=== PATIENT | female | born 1975 | race African-American/Black ===

== ENCOUNTER 2022-07-23 20:48 | Emergency (ER) | payer BC, MEDICAID ==
[~2022-07-23] VITALS: Ht 157.5 cm; Wt 97.5 kg
[~2022-07-23 20:48] MED LIST: AMLO2.5T45 PO; CEPH-569 MT; FERR325T23 PO; LISI10TA26 PO; PNV1TABL76 MT
[2022-07-23 20:57] VITALS: BP 188/91
== END 2022-07-24 01:53 | disposition left against medical advice (07) ==
LOC: ER 20:48
DX: Z53.21 Procedure and treatment not carried out due to patient leaving prior to being seen by health care provider (principal); J45.909 Unspecified asthma, uncomplicated; I11.0 Hypertensive heart disease with heart failure; I50.9 Heart failure, unspecified; K21.9 Gastro-esophageal reflux disease without esophagitis; Z87.440 Personal history of urinary (tract) infections; Z90.49 Acquired absence of other specified parts of digestive tract
CPT/HCPCS: 93005

== ENCOUNTER 2023-08-16 00:07 | Emergency (ER) | payer SELFPAY ==
[~2023-08-16] VITALS: Ht 157.5 cm; Wt 99.0 kg
[2023-08-16 00:24] VITALS: O2SAT 98
[2023-08-16] MEDS ORDERED: HYDRALAZINE 20MG/ML VIAL IV ONE (02:45)
[2023-08-16 03:24] LABS: BASOPHILS % 0.8 % (0.0-2.0); EOSINOPHILS % 7.8 % (0.0-5.0); HEMATOCRIT. 36.5 % (36.0-48.0); HEMOGLOBIN. 11.9 g/dL (12.0-16.0); LYMPHOCYTES % 25.1 % (20.0-50.0); MEAN CORPUSCULAR HEMOGLOBIN 27.4 pg (28.0-32.0); MEAN CORPUSCULAR HGB CONC 32.7 g/dL (31.0-37.0); MEAN CORPUSCULAR VOLUME 83.7 fL (81.0-99.0); MEAN PLATELET VOLUME 9.5 fl (7.4-10.4); MONOCYTES % 7.6 % (2.0-8.0); NEUTROPHILS % 58.7 % (40.0-76.0); PLATELET 256 x1000/uL (130-400); RED BLOOD CELL COUNT 4.36 mill/uL (4.2-5.4); RED CELL DISTRIBUTION WIDTH 17.4 % (11.6-14.6); WHITE BLOOD COUNT 7.9 x1000/uL (4.5-11.0)
[2023-08-16 03:39] LABS: ALANINE AMINOTRANSFERASE 11 IU/L (10-49); ALBUMIN 3.9 g/dL (3.2-4.8); ASPARTATE AMINOTRANSFERASE 18 IU/L (<34); BILIRUBIN TOTAL 0.4 mg/dL (0.1-1.0); CALCIUM 9.3 mg/dL (8.7-10.4); CARBON DIOXIDE 30 mEq/L (21-32); CHLORIDE 104 mEq/L (98-107); CREATININE 0.6 mg/dL (0.6-1.0); GLUCOSE 94 mg/dL (70-105); POTASSIUM 3.9 mEq/L (3.5-5.1); PROTEIN TOTAL 6.5 g/dL (6.0-8.3); SODIUM 140 mEq/L (136-145)
[2023-08-16 03:42] LABS: TROPONIN I HIGH SENSITIVITY < 4 ng/L (3.0-34); UREA NITROGEN BLOOD < 5 mg/dL (9-23)
[2023-08-16] MEDS ORDERED: FENTANYL 2500MCG/250ML PMX 250 ML IV ONE (05:30)
[2023-08-16] MEDS ORDERED: PROPOFOL 10MG/ML 100ML 100 ML IV ONE (05:30)
[2023-08-16] MEDS ORDERED: P50 MT (05:50)
[2023-08-16] MEDS ORDERED: AMLODIPINE 5MG TABLET PO NR (06:00)
[2023-08-16] MEDS ORDERED: AMLODIPINE 10MG TABLET PO ONE (06:00)
[2023-08-16] MEDS ORDERED: LISINOPRIL 10MG TABLET PO ONE (06:00)
[2023-08-16] MEDS ORDERED: METHYLPREDNISOLONE SOD SUCC 125MG/2ML (ACT-O-VIAL) IV STA (06:02)
[2023-08-16] MEDS ORDERED: IPRATROPIUM BROMIDE (0.02%) 0.5MG/2.5ML NEB HHN STA (06:02)
[2023-08-16] MEDS ORDERED: ALBUTEROL (0.083%) 2.5MG/3ML NEB HHN ONE (06:15)
[2023-08-16] MEDS ORDERED: ALBUTEROL (0.083%) 2.5MG/3ML NEB HHN SCH (06:30)
[2023-08-16] MEDS ORDERED: AMLO2.5T45 PO (07:26)
[2023-08-16] MEDS ORDERED: LISI10TA26 PO (07:26)
[2023-08-16] MEDS ORDERED: ALBU6.7H15 INH (07:26)
[2023-08-16 09:02] VITALS: BP 156/87; PULSE 102; RESP 17; TEMP 98.1
== END 2023-08-16 09:05 | disposition home or self-care (01) ==
LOC: ER 00:07
DX: J45.909 Unspecified asthma, uncomplicated (principal); I12.0 Hypertensive chronic kidney disease with stage 5 chronic kidney disease or end stage renal disease; I50.9 Heart failure, unspecified; K21.9 Gastro-esophageal reflux disease without esophagitis; F19.90 Other psychoactive substance use, unspecified, uncomplicated; Z20.822 Contact with and (suspected) exposure to COVID-19; Z90.49 Acquired absence of other specified parts of digestive tract
CPT/HCPCS: 80053; 83880; 85025; 84484; 87804 ×2; 36415; 71045; 94640; 93005; 99285; 87426; J0360; J2930; Z7610 ×4; C9803; J3010